=== PATIENT | male | born 1950 ===

== ENCOUNTER → 2021-02-18 | Outpatient (REF) | payer MEDICARE, OTHER ==
[2021-02-18 19:32] LABS: CREATININE, URINE 64.1 MG/DL; MALB URINE SIEMENS 7.8 MG/L; MAU/CREAT RATIO 12.1 MCG/MG (0.0-30.0)
== END ==
LOC: M LAB REF 17:21
PROVIDERS: ATTEND Nurse Practitioner Family
DX: E11.65 Type 2 diabetes mellitus with hyperglycemia (principal)

== ENCOUNTER → 2022-01-28 | Outpatient (REF) | payer MEDICARE, OTHER ==
[2022-01-28 18:28] LABS: CREATININE, URINE 53.3 MG/DL; MAU/CREAT RATIO 210.1 MCG/MG (0.0-30.0)
== END ==
LOC: M LAB REF 16:45
PROVIDERS: ATTEND Nurse Practitioner Family
DX: E11.65 Type 2 diabetes mellitus with hyperglycemia (principal)